=== PATIENT | male | born 1955 | race Caucasian/White ===

== ENCOUNTER → 2018-11-15 | Outpatient (REF) | payer OTHER ==
[2018-11-15 18:37] LABS: BASO # 0.1 10^3/uL (0.0-0.2); BASO % 1.1 % (0.0-1.0); EOS # 0.3 10^3/uL (0.0-0.50); EOS % 3.8 % (0.0-3.0); HEMATOCRIT 38.9 % (42.0-52.0); HEMOGLOBIN 13.1 g/dl (13.5-17.5); LYMPH # 2.6 10^3/uL (1.5-4.5); LYMPH % 29.6 % (24.0-44.0); MEAN CORPUSCULAR HGB CONC 33.7 g/dl (32.0-36.5); MEAN CORPUSCULAR VOLUME 95.1 fl (80.0-96.0); MONO # 0.7 10^3/uL (0.0-0.8); MONO % 7.9 % (0.0-5.0); NEUTROPHILS % 57.3 % (36.0-66.0); PLATELET COUNT, AUTOMATED 230 10^3/uL (150-450); RED BLOOD COUNT 4.09 10^6/uL (4.30-6.10); WHITE BLOOD COUNT 8.8 10^3/uL (4.0-10.0)
[2018-11-15 18:46] LABS: ALBUMIN 4.1 GM/DL (3.2-5.2); ALT/SGPT 21 U/L (12-78); BILIRUBIN,TOTAL 0.4 MG/DL (0.2-1.0); BLOOD UREA NITROGEN 16 MG/DL (7-18); CALCIUM LEVEL 9.2 MG/DL (8.8-10.2); CARBON DIOXIDE LEVEL 26 MEQ/L (21-32); CHLORIDE LEVEL 111 MEQ/L (98-107); CHOLESTEROL LEVEL 186 MG/DL (<200); CHOLESTEROL RISK RATIO 4.428 (<5); CREATININE FOR GFR 1.29 MG/DL (0.70-1.30); GLOMERULAR FILTRATION RATE > 60.0 (>49); GLUCOSE, FASTING 91 MG/DL (70-100); HDL CHOLESTEROL 42 MG/DL (>40); LDL CHOLESTEROL 85 MG/DL (<100); NON-HDL-C 144 MG/DL; POTASSIUM SERUM 4.4 MEQ/L (3.5-5.1); SODIUM LEVEL 142 MEQ/L (136-145); TOTAL PROTEIN 6.7 GM/DL (6.4-8.2); TRIGLYCERIDES LEVEL 295 MG/DL (<150)
[2018-11-15 19:29] LABS: HEMOGLOBIN A1c 5.8 %
== END ==
LOC: M LAB REF 17:52
PROVIDERS: ATTEND Nurse Practitioner Family
DX: Z13.9 Encounter for screening, unspecified (principal); E78.5 Hyperlipidemia, unspecified

== ENCOUNTER → 2019-03-13 | Outpatient (REF) | payer OTHER ==
[2019-03-13 18:45] LABS: BASO # 0.1 10^3/uL (0.0-0.2); BASO % 1.1 % (0.0-1.0); EOS # 0.3 10^3/uL (0.0-0.5); EOS % 2.1 % (0.0-3.0); HEMATOCRIT 43.8 % (42.0-52.0); HEMOGLOBIN 14.4 g/dl (13.5-17.5); LYMPH % 24.7 % (24.0-44.0); MEAN CORPUSCULAR HEMOGLOBIN 31.8 pg (27.0-33.0); MEAN CORPUSCULAR HGB CONC 32.9 g/dl (32.0-36.5); MEAN CORPUSCULAR VOLUME 96.7 fl (80.0-96.0); MONO # 0.9 10^3/uL (0.0-0.8); MONO % 7.1 % (0.0-5.0); NEUTROPHILS # 7.9 10^3/uL (1.5-8.5); NEUTROPHILS % 64.6 % (36.0-66.0); PLATELET COUNT, AUTOMATED 242 10^3/uL (150-450); RED BLOOD COUNT 4.53 10^6/uL (4.30-6.10); WHITE BLOOD COUNT 12.2 10^3/uL (4.0-10.0)
[2019-03-13 18:53] LABS: HEMOGLOBIN A1c 5.7 %
== END ==
LOC: M LAB REF 16:35
PROVIDERS: ATTEND Nurse Practitioner Family
DX: R73.9 Hyperglycemia, unspecified (principal); Z13.9 Encounter for screening, unspecified; D64.9 Anemia, unspecified

== ENCOUNTER → 2019-03-20 | Outpatient (REF) | payer OTHER ==
[2019-03-20 14:03] LABS: APPEARANCE, URINE CLEAR (CLEAR); BACTERIA, URINE AUTO NEGATIVE (NEGATIVE); BILIRUBIN, URINE AUTO NEGATIVE (NEGATIVE); BLOOD, URINE BLOOD NEGATIVE (NEGATIVE); COLOR, URINE STRAW (YELLOW); GLUCOSE, URINE (UA) AUTO NEGATIVE (NEGATIVE); KETONE, URINE AUTO NEGATIVE (NEGATIVE); LEUKOCYTE ESTERASE, URINE AUTO NEGATIVE (NEGATIVE); MUCUS, URINE SMALL (NEGATIVE); NITRITE, URINE AUTO NEGATIVE (NEGATIVE); PROTEIN, URINE AUTO NEGATIVE (NEGATIVE); RBC, URINE AUTO 0 /HPF (0-3); SPECIFIC GRAVITY URINE AUTO 1.004 (1.002-1.035); SQUAMOUS EPITHELIAL CELL UR AU 0 /HPF (0-6); UROBILINOGEN, URINE AUTO 0.2 mg/dL (0.0-2.0); WBC, URINE AUTO 0 /HPF (0-3)
== END ==
LOC: M LAB REF 12:31
PROVIDERS: ATTEND Nurse Practitioner Family
DX: D72.829 Elevated white blood cell count, unspecified (principal)

== ENCOUNTER 2023-03-03 15:53 | Inpatient (IN) | payer OTHER ==
[~2023-03-03] VITALS: Ht 170.2 cm; Wt 66.8 kg
[~2023-03-03 15:53] MED LIST: CYCL-707 PO; GABA-282 PO; HYDR-3716 PO; IBUP200T46 PO; LIDO1PAD
[2023-03-03] MEDS ORDERED: ISOVUE-370 76% 100ML VIAL As Ordered ONE (19:53)
[2023-03-03 20:24] LABS: BASO # 0.1 10^3/uL (0.0-0.2); BASO % 0.5 % (0.0-1.0); EOS # 0.7 10^3/uL (0.0-0.5); EOS % 5.2 % (0.0-3.0); HEMATOCRIT 41.3 % (42.0-52.0); HEMOGLOBIN 13.2 g/dl (13.5-17.5); LYMPH # 2.1 10^3/uL (1.5-5.0); MEAN CORPUSCULAR HEMOGLOBIN 29.9 pg (27.0-33.0); MEAN CORPUSCULAR VOLUME 93.7 fl (80.0-96.0); MONO # 1.3 10^3/uL (0.0-0.8); MONO % 9.8 % (2.0-8.0); NEUTROPHILS # 8.7 10^3/uL (1.5-8.5); PLATELET COUNT, AUTOMATED 356 10^3/uL (150-450); RED BLOOD COUNT 4.41 10^6/uL (4.30-6.10); WHITE BLOOD COUNT 12.9 10^3/uL (4.0-10.0)
[2023-03-03 20:39] LABS: PARTIAL THROMBOPLASTIN TIME 45.6 SECONDS (24.8-34.2)
[2023-03-03 20:42] LABS: RSV AMPLIFICATION NEGATIVE (NEGATIVE)
[2023-03-03 20:45] LABS: CK-MB VALUE MASS < 1.0 NG/ML (<3.6); LIPASE 20 U/L (12-53)
[2023-03-03 20:47] LABS: CPK CREATINE PHOSPHOKINASE 34 U/L (46-171); MB/CK RELATIVE INDEX 2.94 (< OR =4)
[2023-03-03 20:48] LABS: ALKALINE PHOSPHATASE 154 U/L (46-116); ALT/SGPT < 9 U/L (7.0-40); AST/SGOT 15 U/L (<34); BILIRUBIN,DIRECT 0.2 MG/DL (<0.4); BILIRUBIN,TOTAL 0.5 MG/DL (0.3-1.2); TOTAL PROTEIN 7.1 G/DL (5.7-8.2)
[2023-03-03 20:51] LABS: INR 1.18; PROTHROMBIN TIME 14.7 SECONDS (12.5-14.5)
[2023-03-03] MEDS ORDERED: CYCLOBENZAPRINE 10MG TABLET PO ONE (22:55)
[2023-03-03] MEDS ORDERED: GABAPENTIN 300 MG CAP PO ONE (22:55)
[2023-03-03] MEDS ORDERED: HOME MED LIST COMPLETE! XX SCH (23:10)
[2023-03-04] MEDS ORDERED: MOM 30ML SUSPENSION UDC PO PRN (00:35)
[2023-03-04] MEDS ORDERED: NORCO, ANEXSIA 5/325MG TABLET (HYDROcodone/ACETAMINOPHEN) PO PRN (00:35)
[2023-03-04] MEDS ORDERED: MORPHINE 2 MG/ML 1ML VIAL IV PRN (00:35)
[2023-03-04] MEDS ORDERED: ACETAMINOPHEN TAB 650MG DOSE (2X325MG) PO PRN (00:35)
[2023-03-04 01:20] VITALS: BP 129/89; TEMP 98.4; O2SAT 96
[2023-03-04 06:00] VITALS: BP 112/76; TEMP 98.1; O2SAT 97
[2023-03-04 06:30] LABS: HEMATOCRIT 38.6 % (42.0-52.0); HEMOGLOBIN 12.8 g/dl (13.5-17.5); MEAN CORPUSCULAR HEMOGLOBIN 30.1 pg (27.0-33.0); MEAN CORPUSCULAR HGB CONC 33.2 g/dl (32.0-36.5); MEAN CORPUSCULAR VOLUME 90.8 fl (80.0-96.0); PLATELET COUNT, AUTOMATED 317 10^3/uL (150-450); RED BLOOD COUNT 4.25 10^6/uL (4.30-6.10); WHITE BLOOD COUNT 11.1 10^3/uL (4.0-10.0)
[2023-03-04 07:00] LABS: ALBUMIN 2.8 G/DL (3.2-5.2); ALKALINE PHOSPHATASE 139 U/L (46-116); ALT/SGPT < 9 U/L (7.0-40); AST/SGOT 12 U/L (<34); BILIRUBIN,TOTAL 0.5 MG/DL (0.3-1.2); BLOOD UREA NITROGEN 14 MG/DL (9-23); CALCIUM LEVEL 9.8 MG/DL (8.3-10.6); CARBON DIOXIDE LEVEL 27 MMOL/L (20-31); CHLORIDE LEVEL 101 MMOL/L (98-107); CREATININE FOR GFR 0.97 MG/DL (0.70-1.30); GLOMERULAR FILTRATION RATE > 60.0 (>49); GLUCOSE, FASTING 85 MG/DL (74-106); POTASSIUM SERUM 4.4 MMOL/L (3.5-5.1); SODIUM LEVEL 136 MMOL/L (136-145)
[2023-03-04] MEDS ORDERED: PERCOCET 5MG/325MG TAB PO PRN ×2 (07:10)
[2023-03-04] MEDS: ENOXAPARIN 40MG/0.4ML SYRINGE (J1650 PER 10MG) SC SCH (09:45)
[2023-03-04] MEDS: NORCO, ANEXSIA 5/325MG TABLET (HYDROcodone/ACETAMINOPHEN) PO PRN (09:46)
[2023-03-04] MEDS: CYCLOBENZAPRINE 10MG TABLET PO SCH ×3 (09:46→20:01)
[2023-03-04] MEDS: GABAPENTIN 300 MG CAP PO SCH ×3 (09:46→20:01)
[2023-03-04] MEDS: DOCUSATE SODIUM 100MG CAPSULE PO SCH ×2 (09:46→20:01)
[2023-03-04 14:00] VITALS: BP 120/79; TEMP 98.6; O2SAT 97
[2023-03-04] MEDS: ANEXSIA, NORCO 7.5MG/325MG TABLET(HYDROCODONE/APAP) PO PRN ×2 (15:20→20:02)
[2023-03-04 20:00] VITALS: BP 120/79; TEMP 98.1; O2SAT 96
[2023-03-04] MEDS: SENNA 8.6 MG TAB (SENOKOT) PO SCH (20:01)
[2023-03-05 06:00] VITALS: BP 114/77; TEMP 97.9; O2SAT 97
[2023-03-05 07:19] LABS: HEMATOCRIT 37.6 % (42.0-52.0); HEMOGLOBIN 12.5 g/dl (13.5-17.5); MEAN CORPUSCULAR HEMOGLOBIN 30.2 pg (27.0-33.0); MEAN CORPUSCULAR HGB CONC 33.2 g/dl (32.0-36.5); MEAN CORPUSCULAR VOLUME 90.8 fl (80.0-96.0); PLATELET COUNT, AUTOMATED 308 10^3/uL (150-450); RED BLOOD COUNT 4.14 10^6/uL (4.30-6.10); WHITE BLOOD COUNT 10.6 10^3/uL (4.0-10.0)
[2023-03-05 07:52] LABS: ALBUMIN 2.8 G/DL (3.2-5.2); ALKALINE PHOSPHATASE 127 U/L (46-116); ALT/SGPT < 9 U/L (7.0-40); AST/SGOT 12 U/L (<34); BILIRUBIN,TOTAL 0.5 MG/DL (0.3-1.2); BLOOD UREA NITROGEN 17 MG/DL (9-23); CALCIUM LEVEL 9.5 MG/DL (8.3-10.6); CARBON DIOXIDE LEVEL 27 MMOL/L (20-31); CHLORIDE LEVEL 101 MMOL/L (98-107); CREATININE FOR GFR 0.93 MG/DL (0.70-1.30); GLOMERULAR FILTRATION RATE > 60.0 (>49); GLUCOSE, FASTING 94 MG/DL (74-106); POTASSIUM SERUM 4.1 MMOL/L (3.5-5.1); SODIUM LEVEL 136 MMOL/L (136-145); TOTAL PROTEIN 6.9 G/DL (5.7-8.2)
[2023-03-05] MEDS: GABAPENTIN 300 MG CAP PO SCH ×3 (09:24→20:14)
[2023-03-05] MEDS: ENOXAPARIN 40MG/0.4ML SYRINGE (J1650 PER 10MG) SC SCH (09:24)
[2023-03-05] MEDS: CYCLOBENZAPRINE 10MG TABLET PO SCH ×3 (09:24→20:14)
[2023-03-05] MEDS: DOCUSATE SODIUM 100MG CAPSULE PO SCH ×2 (09:24→20:14)
[2023-03-05] MEDS: NORCO, ANEXSIA 5/325MG TABLET (HYDROcodone/ACETAMINOPHEN) PO PRN ×3 (09:25→20:13)
[2023-03-05 14:00] VITALS: BP 113/79; TEMP 98.6; O2SAT 95
[2023-03-05] MEDS ORDERED: PROHANCE 279.3MG/ML 15ML VIAL As Ordered ONE (15:30)
[2023-03-05 20:00] VITALS: BP 115/79; TEMP 98.4; O2SAT 97
[2023-03-05] MEDS: SENNA 8.6 MG TAB (SENOKOT) PO SCH (20:13)
[2023-03-06] MEDS: ANEXSIA, NORCO 7.5MG/325MG TABLET(HYDROCODONE/APAP) PO PRN ×2 (02:23→08:30)
[2023-03-06 05:45] VITALS: BP 119/82; TEMP 98.1; O2SAT 97
[2023-03-06 06:27] LABS: HEMATOCRIT 37.6 % (42.0-52.0); HEMOGLOBIN 12.3 g/dl (13.5-17.5); MEAN CORPUSCULAR HEMOGLOBIN 29.9 pg (27.0-33.0); MEAN CORPUSCULAR HGB CONC 32.7 g/dl (32.0-36.5); MEAN CORPUSCULAR VOLUME 91.3 fl (80.0-96.0); PLATELET COUNT, AUTOMATED 317 10^3/uL (150-450); RED BLOOD COUNT 4.12 10^6/uL (4.30-6.10); WHITE BLOOD COUNT 9.7 10^3/uL (4.0-10.0)
[2023-03-06 06:55] LABS: ALBUMIN 2.7 G/DL (3.2-5.2); ALKALINE PHOSPHATASE 117 U/L (46-116); ALT/SGPT 9 U/L (7.0-40); AST/SGOT 12 U/L (<34); BILIRUBIN,TOTAL 0.5 MG/DL (0.3-1.2); BLOOD UREA NITROGEN 14 MG/DL (9-23); CALCIUM LEVEL 9.4 MG/DL (8.3-10.6); CARBON DIOXIDE LEVEL 27 MMOL/L (20-31); CHLORIDE LEVEL 102 MMOL/L (98-107); CREATININE FOR GFR 0.96 MG/DL (0.70-1.30); GLOMERULAR FILTRATION RATE > 60.0 (>49); GLUCOSE, FASTING 101 MG/DL (74-106); POTASSIUM SERUM 3.8 MMOL/L (3.5-5.1); SODIUM LEVEL 138 MMOL/L (136-145); TOTAL PROTEIN 6.8 G/DL (5.7-8.2)
[2023-03-06] MEDS: GABAPENTIN 300 MG CAP PO SCH ×3 (08:29→20:17)
[2023-03-06] MEDS: DOCUSATE SODIUM 100MG CAPSULE PO SCH ×2 (08:29→20:26)
[2023-03-06] MEDS: CYCLOBENZAPRINE 10MG TABLET PO SCH ×3 (08:30→20:17)
[2023-03-06] MEDS: ENOXAPARIN 40MG/0.4ML SYRINGE (J1650 PER 10MG) SC SCH ×2 (08:30→08:49)
[2023-03-06] MEDS: MOM 30ML SUSPENSION UDC PO SCH ×3 (09:00→20:17)
[2023-03-06] MEDS: NORCO, ANEXSIA 5/325MG TABLET (HYDROcodone/ACETAMINOPHEN) PO PRN ×2 (13:26→20:18)
[2023-03-06 14:00] VITALS: BP 116/79; TEMP 98.1; O2SAT 96
[2023-03-06] MEDS: SENNA 8.6 MG TAB (SENOKOT) PO SCH (20:17)
[2023-03-06 20:50] VITALS: BP 117/79; TEMP 98.1; O2SAT 98
[2023-03-07 05:30] VITALS: BP 124/79; TEMP 97.9; O2SAT 98
[2023-03-07 06:23] LABS: HEMATOCRIT 37.5 % (42.0-52.0); HEMOGLOBIN 12.3 g/dl (13.5-17.5); MEAN CORPUSCULAR HEMOGLOBIN 29.6 pg (27.0-33.0); MEAN CORPUSCULAR HGB CONC 32.8 g/dl (32.0-36.5); MEAN CORPUSCULAR VOLUME 90.4 fl (80.0-96.0); PLATELET COUNT, AUTOMATED 335 10^3/uL (150-450); RED BLOOD COUNT 4.15 10^6/uL (4.30-6.10); WHITE BLOOD COUNT 11.1 10^3/uL (4.0-10.0)
[2023-03-07] MEDS: NORCO, ANEXSIA 5/325MG TABLET (HYDROcodone/ACETAMINOPHEN) PO PRN ×4 (06:44→20:08)
[2023-03-07 06:52] LABS: ALBUMIN 2.7 G/DL (3.2-5.2); ALKALINE PHOSPHATASE 116 U/L (46-116); ALT/SGPT 12 U/L (7.0-40); AST/SGOT 17 U/L (<34); BILIRUBIN,TOTAL 0.5 MG/DL (0.3-1.2); BLOOD UREA NITROGEN 14 MG/DL (9-23); CALCIUM LEVEL 9.3 MG/DL (8.3-10.6); CARBON DIOXIDE LEVEL 25 MMOL/L (20-31); CHLORIDE LEVEL 101 MMOL/L (98-107); CREATININE FOR GFR 0.83 MG/DL (0.70-1.30); GLOMERULAR FILTRATION RATE > 60.0 (>49); GLUCOSE, FASTING 113 MG/DL (74-106); SODIUM LEVEL 137 MMOL/L (136-145); TOTAL PROTEIN 6.8 G/DL (5.7-8.2)
[2023-03-07] MEDS: MOM 30ML SUSPENSION UDC PO SCH ×2 (08:06→20:12)
[2023-03-07] MEDS: DOCUSATE SODIUM 100MG CAPSULE PO SCH ×2 (08:06→20:12)
[2023-03-07] MEDS: GABAPENTIN 300 MG CAP PO SCH ×3 (08:06→20:07)
[2023-03-07] MEDS: CYCLOBENZAPRINE 10MG TABLET PO SCH ×3 (08:06→20:07)
[2023-03-07 08:11] LABS: CA 27.29 138.3 U/mL (0.0-38.6)
[2023-03-07] MEDS: ENOXAPARIN 40MG/0.4ML SYRINGE (J1650 PER 10MG) SC SCH (08:16)
[2023-03-07] MEDS ORDERED: LIDOCAINE 1% MDV 20ML VIAL As Ordered ONE (13:10)
[2023-03-07 15:00] VITALS: BP 125/79; TEMP 97.9; O2SAT 100
[2023-03-07] MEDS: SENNA 8.6 MG TAB (SENOKOT) PO SCH (20:12)
[2023-03-07 21:04] VITALS: BP 114/77; TEMP 98.1; O2SAT 96
[2023-03-08 05:17] VITALS: BP 108/71; TEMP 98.1; O2SAT 97
[2023-03-08] MEDS: NORCO, ANEXSIA 5/325MG TABLET (HYDROcodone/ACETAMINOPHEN) PO PRN ×2 (05:18→13:08)
[2023-03-08 06:27] LABS: HEMATOCRIT 35.6 % (42.0-52.0); HEMOGLOBIN 11.5 g/dl (13.5-17.5); MEAN CORPUSCULAR HEMOGLOBIN 29.4 pg (27.0-33.0); MEAN CORPUSCULAR HGB CONC 32.3 g/dl (32.0-36.5); PLATELET COUNT, AUTOMATED 322 10^3/uL (150-450); RED BLOOD COUNT 3.91 10^6/uL (4.30-6.10)
[2023-03-08 06:59] LABS: ALBUMIN 2.7 G/DL (3.2-5.2); ALKALINE PHOSPHATASE 116 U/L (46-116); ALT/SGPT 15 U/L (7.0-40); AST/SGOT 19 U/L (<34); BILIRUBIN,TOTAL 0.4 MG/DL (0.3-1.2); BLOOD UREA NITROGEN 13 MG/DL (9-23); CALCIUM LEVEL 9.1 MG/DL (8.3-10.6); CARBON DIOXIDE LEVEL 27 MMOL/L (20-31); CHLORIDE LEVEL 102 MMOL/L (98-107); CREATININE FOR GFR 0.83 MG/DL (0.70-1.30); GLOMERULAR FILTRATION RATE > 60.0 (>49); GLUCOSE, FASTING 99 MG/DL (74-106); SODIUM LEVEL 139 MMOL/L (136-145); TOTAL PROTEIN 6.4 G/DL (5.7-8.2)
[2023-03-08] MEDS: MOM 30ML SUSPENSION UDC PO SCH (09:00)
[2023-03-08] MEDS: DOCUSATE SODIUM 100MG CAPSULE PO SCH (09:00)
[2023-03-08] MEDS: GABAPENTIN 300 MG CAP PO SCH (09:20)
[2023-03-08] MEDS: CYCLOBENZAPRINE 10MG TABLET PO SCH (09:20)
[2023-03-08] MEDS: ENOXAPARIN 40MG/0.4ML SYRINGE (J1650 PER 10MG) SC SCH (09:20)
[2023-03-08] MEDS ORDERED: HYDR-3716 PO (12:43)
[2023-03-08] MEDS ORDERED: COLA100C5 PO (12:44)
[2023-03-08] MEDS ORDERED: SENN-188 PO (12:44)
[2023-03-08] MEDS ORDERED: HYDR-3715 PO (12:44)
[2023-03-13] MEDS ORDERED: HYDR-3715 PO (14:10)
== END 2023-03-08 14:42 | disposition home or self-care (01) | DRG 136 ==
LOC: M ED 15:53 → M ED INP 23:34 → ENRESERV 03-04 01:01 → M MSPAV 03-04 01:21
PROVIDERS: ADMIT Family Medicine; ATTEND Internal Medicine Nephrology
PROC: 0QB13ZX Excision of Sacrum, Percutaneous Approach, Diagnostic (ICD-10-PCS; principal; 2023-03-07 15:00)
DX: C34.90 Malignant neoplasm of unspecified part of unspecified bronchus or lung (principal); C79.51 Secondary malignant neoplasm of bone; Z87.891 Personal history of nicotine dependence; Z79.899 Other long term (current) drug therapy; Z92.3 Personal history of irradiation

== ENCOUNTER → 2023-04-05 | Outpatient (CLI) | payer OTHER ==
[~2023-04-05] VITALS: Ht 170.2 cm; Wt 60.4 kg
[~2023-04-05] MED LIST changes: +COLA100C5 PO; +HYDR-3715 PO; +LIDOCAINE 1% MDV 20ML VIAL As Ordered ONE; +LIDOCAINE W/EPINEPHRINE 1% 20ML VIAL As Ordered ONE; +MIDAZOLAM INJ 2MG/2ML VIAL As Ordered ONE; +OXYC7.5T3 PO; +SENN-188 PO; +ceFAZolin 2 GM/D5W 50 ML IV BAG As Ordered ONE; +ceFAZolin SOD 2 GM in IV 1 EA IV ONE; +fentaNYL 100 MCG/2 ML INJECTION As Ordered ONE
[2023-04-05 12:05] VITALS: TEMP 97.7
[2023-04-05 14:30] VITALS: BP 113/74; O2SAT 97
== END ==
LOC: M IRPRO 11:50
PROVIDERS: ATTEND Internal Medicine Medical Oncology
DX: C79.51 Secondary malignant neoplasm of bone (principal); R91.8 Other nonspecific abnormal finding of lung field
CPT/HCPCS: 36561; 99152; 99153; J0690; J2250; J3010

== ENCOUNTER 2023-05-17 06:34 | Emergency (ER) | payer OTHER ==
[~2023-05-17] VITALS: Ht 170.2 cm; Wt 59.3 kg
[~2023-05-17 06:34] MED LIST changes: +DEXA4TA PO; +FOLI1TAB11 PO; +LIDO30CR18 TOP; -LIDOCAINE 1% MDV 20ML VIAL As Ordered ONE; -LIDOCAINE W/EPINEPHRINE 1% 20ML VIAL As Ordered ONE; -MIDAZOLAM INJ 2MG/2ML VIAL As Ordered ONE; +ONDA-84 PO; +PROC10TA5 PO; -ceFAZolin 2 GM/D5W 50 ML IV BAG As Ordered ONE; -ceFAZolin SOD 2 GM in IV 1 EA IV ONE; -fentaNYL 100 MCG/2 ML INJECTION As Ordered ONE
[2023-05-17] MEDS ORDERED: NS 1,000 ML IV ONE ×2 (06:40→06:50)
[2023-05-17] MEDS ORDERED: DIGOXIN INJ 0.5 MG/2 ML AMP IV STA (06:47)
[2023-05-17 07:10] LABS: BASO # 0.1 10^3/uL (0.0-0.2); BASO % 1.2 % (0.0-1.0); EOS # 0.2 10^3/uL (0.0-0.5); EOS % 4.2 % (0.0-3.0); HEMATOCRIT 36.1 % (42.0-52.0); HEMOGLOBIN 11.3 g/dl (13.5-17.5); LYMPH # 1.2 10^3/uL (1.5-5.0); MEAN CORPUSCULAR HGB CONC 31.3 g/dl (32.0-36.5); MEAN CORPUSCULAR VOLUME 92.6 fl (80.0-96.0); MONO # 0.3 10^3/uL (0.0-0.8); MONO % 7.7 % (2.0-8.0); NEUTROPHILS # 2.5 10^3/uL (1.5-8.5); NEUTROPHILS % 57.5 % (36.0-66.0); PLATELET COUNT, AUTOMATED 212 10^3/uL (150-450); WHITE BLOOD COUNT 4.3 10^3/uL (4.0-10.0)
[2023-05-17 07:22] LABS: INR 1.15; PARTIAL THROMBOPLASTIN TIME 37.6 SECONDS (24.8-34.2); PROTHROMBIN TIME 14.4 SECONDS (12.5-14.5)
[2023-05-17] MEDS ORDERED: METOPROLOL TART 25 MG TABLET PO ONE (07:40)
[2023-05-17] MEDS ORDERED: DIGOXIN INJ 0.5 MG/2 ML AMP IV ONE (07:40)
[2023-05-17 07:43] LABS: RSV AMPLIFICATION NEGATIVE (NEGATIVE)
[2023-05-17 07:45] LABS: BLOOD UREA NITROGEN 11 MG/DL (9-23); CALCIUM LEVEL 8.5 MG/DL (8.3-10.6); CARBON DIOXIDE LEVEL 22 MMOL/L (20-31); CHLORIDE LEVEL 101 MMOL/L (98-107); CK-MB VALUE MASS < 1.0 NG/ML (<3.6); CREATININE FOR GFR 0.71 MG/DL (0.70-1.30); GLOMERULAR FILTRATION RATE > 60.0 (>49); GLUCOSE, FASTING 118 MG/DL (74-106); POTASSIUM SERUM 4.3 MMOL/L (3.5-5.1); SODIUM LEVEL 133 MMOL/L (136-145)
[2023-05-17] MEDS ORDERED: DERMABOND TOPICAL SKIN ADHESIVE TOP ONE (07:45)
[2023-05-17 07:47] LABS: THYROID STIMULATING HORMONE 6.012 uIU/ML (0.55-4.78)
[2023-05-17 07:48] LABS: FREE T4 1.17 NG/DL (0.89-1.76)
[2023-05-17 08:04] LABS: CPK CREATINE PHOSPHOKINASE 23 U/L (46-171); MB/CK RELATIVE INDEX 4.34 (< OR =4)
[2023-05-17 08:15] VITALS: BP 98/60
[2023-05-17 08:32] LABS: CK-MB VALUE MASS < 1.0 NG/ML (<3.6)
[2023-05-17 08:50] LABS: CPK CREATINE PHOSPHOKINASE 30 U/L (46-171); MB/CK RELATIVE INDEX 3.33 (< OR =4)
[2023-05-17] MEDS ORDERED: NS 1,000 ML IV SCH (08:55)
[2023-05-17] MEDS ORDERED: MED REC IN PROGRESS XX SCH (09:20)
[2023-05-17] MEDS ORDERED: ASPIRIN 325 MG TAB PO ONE (09:30)
[2023-05-17] MEDS ORDERED: FLECAINIDE 50MG TABLET PO ONE (09:45)
[2023-05-17 10:50] VITALS: BP 127/59; TEMP 98.1; O2SAT 96
[2023-05-22] MEDS ORDERED: GABA-282 PO (09:07)
[2023-05-25] MEDS ORDERED: ATIV1TAB10 PO (08:40)
== END 2023-05-17 10:59 | disposition short-term general hospital (02) ==
LOC: EDBD 06:34 → M ED 06:34
DX: R55 Syncope and collapse (principal); I48.91 Unspecified atrial fibrillation; S01.112A Laceration without foreign body of left eyelid and periocular area, initial encounter; W19.XXXA Unspecified fall, initial encounter; Y92.89 Other specified places as the place of occurrence of the external cause; Y93.89 Activity, other specified; Y99.8 Other external cause status; C34.90 Malignant neoplasm of unspecified part of unspecified bronchus or lung; Z79.899 Other long term (current) drug therapy
CPT/HCPCS: 12011; 70450; 70486; 71045; 72125; 80047; 80048; 82550; 82553; 83605; 83880; 84439; 84443; 84484; 85025; 85610; 85730; 87631; 93005; 93041; 94760; 96374; 96376; 99285; J1160

== ENCOUNTER → 2023-06-30 | Outpatient (CLI) | payer OTHER ==
[~2023-06-30] VITALS: Ht 170.2 cm; Wt 58.2 kg
[~2023-06-30] MED LIST changes: +ACETAMINOPHEN TAB 650MG DOSE (2X325MG) PO SCH; +AMBI5TAB PO; +ATIV1TAB10 PO; +CYCL-707; +ELIQ5TAB; +LORA1TAB23 PO; +METO50TA7; +OXYC10TA12 PO; +SENN-186; +SODIUM CHLORIDE 0.9% INJ 10 ML SYR IV PRN; +SODIUM CHLORIDE 0.9% INJ 10 ML SYR IV SCH; +SYNT25TA PO; +diphenhydrAMINE 25MG CAP PO SCH
[2023-06-30 11:20] VITALS: BP 95/61; O2SAT 97
[2023-06-30 12:19] VITALS: BP 104/68; TEMP 97.5; O2SAT 100
[2023-06-30 13:40] VITALS: BP 105/67; TEMP 97.6; O2SAT 96
[2023-06-30 14:15] VITALS: BP 110/68; O2SAT 96
== END ==
LOC: M INFU 10:35
PROVIDERS: ATTEND Nurse Practitioner
DX: C34.90 Malignant neoplasm of unspecified part of unspecified bronchus or lung (principal)
CPT/HCPCS: 36430; 96523; P9016

== ENCOUNTER 2023-07-13 08:28 | Outpatient (CLI) | payer OTHER ==
[~2023-07-13] VITALS: Ht 170.2 cm; Wt 59.0 kg
[~2023-07-13 08:28] MED LIST changes: -ACETAMINOPHEN TAB 650MG DOSE (2X325MG) PO SCH; +ELIQ5TAB PO; -SODIUM CHLORIDE 0.9% INJ 10 ML SYR IV PRN; -SODIUM CHLORIDE 0.9% INJ 10 ML SYR IV SCH; +ZOLP10TA2 PO; -diphenhydrAMINE 25MG CAP PO SCH
[2023-07-13] MEDS ORDERED: diphenhydrAMINE 25MG CAP PO ONE (09:00)
[2023-07-13] MEDS ORDERED: ACETAMINOPHEN TAB 650MG DOSE (2X325MG) PO ONE (09:00)
[2023-07-13 09:41] VITALS: BP 96/62; TEMP 97.5; O2SAT 100
[2023-07-13 09:55] VITALS: BP 94/58; TEMP 97.6; O2SAT 96
[2023-07-13 10:55] VITALS: BP 101/66; TEMP 97.6; O2SAT 98
[2023-07-13 11:20] VITALS: BP 96/62; TEMP 97.7; O2SAT 99
[2023-07-13 11:40] VITALS: BP 98/68; TEMP 97.6; O2SAT 96
[2023-07-13 12:50] VITALS: BP 113/71; TEMP 96.6; O2SAT 97
== END 2023-07-13 13:00 ==
LOC: M INFU 08:28
PROVIDERS: ATTEND Internal Medicine Medical Oncology
DX: C34.90 Malignant neoplasm of unspecified part of unspecified bronchus or lung (principal); D64.9 Anemia, unspecified
CPT/HCPCS: 36430; P9016

== ENCOUNTER → 2023-07-21 | Outpatient (CLI) | payer OTHER ==
[~2023-07-21] MED LIST changes: +B-12100010 PO; +GASTROGRAFIN SOLUTION 30ML ONE; +ISOVUE-370 76% 100ML VIAL ONE; +MELA10CA PO; +METO1TAB87 PO; +THERTAB19 PO
== END ==
LOC: M PLAIMG 09:28
PROVIDERS: ATTEND Nurse Practitioner
DX: C34.12 Malignant neoplasm of upper lobe, left bronchus or lung (principal); C79.72 Secondary malignant neoplasm of left adrenal gland; C79.71 Secondary malignant neoplasm of right adrenal gland; C77.1 Secondary and unspecified malignant neoplasm of intrathoracic lymph nodes; C79.51 Secondary malignant neoplasm of bone; J90 Pleural effusion, not elsewhere classified

== ENCOUNTER 2023-07-22 21:12 | Inpatient (IN) | payer OTHER ==
[~2023-07-22] VITALS: Ht 170.2 cm; Wt 61.0 kg
[~2023-07-22 21:12] MED LIST changes: -B-12100010 PO; -GASTROGRAFIN SOLUTION 30ML ONE; -ISOVUE-370 76% 100ML VIAL ONE; -MELA10CA PO; -METO1TAB87 PO; -THERTAB19 PO
[2023-07-22 22:12] LABS: BASO % 0.2 % (0.0-1.0); EOS % 0.2 % (0.0-3.0); HEMATOCRIT 23.8 % (42.0-52.0); HEMOGLOBIN 7.6 g/dl (13.5-17.5); LYMPH # 0.6 10^3/uL (1.5-5.0); LYMPH % 12.8 % (24.0-44.0); MEAN CORPUSCULAR HEMOGLOBIN 31.4 pg (27.0-33.0); MEAN CORPUSCULAR HGB CONC 31.9 g/dl (32.0-36.5); MEAN CORPUSCULAR VOLUME 98.3 fl (80.0-96.0); MONO # 0.5 10^3/uL (0.0-0.8); MONO % 9.7 % (2.0-8.0); NEUTROPHILS # 3.7 10^3/uL (1.5-8.5); NEUTROPHILS % 76.5 % (36.0-66.0); PLATELET COUNT, AUTOMATED 105 10^3/uL (150-450); RED BLOOD COUNT 2.42 10^6/uL (4.30-6.10); WHITE BLOOD COUNT 4.8 10^3/uL (4.0-10.0)
[2023-07-22 22:44] LABS: ALKALINE PHOSPHATASE 114 U/L (46-116); ALT/SGPT 30 U/L (7.0-40); AST/SGOT 47 U/L (<34); BILIRUBIN,TOTAL 0.4 MG/DL (0.3-1.2); BLOOD UREA NITROGEN 15 MG/DL (9-23); CALCIUM LEVEL 8.2 MG/DL (8.3-10.6); CARBON DIOXIDE LEVEL 24 MMOL/L (20-31); CHLORIDE LEVEL 105 MMOL/L (98-107); CREATININE FOR GFR 0.68 MG/DL (0.70-1.30); GLOMERULAR FILTRATION RATE > 60.0 (>49); GLUCOSE, FASTING 98 MG/DL (74-106); POTASSIUM SERUM 4.5 MMOL/L (3.5-5.1); SODIUM LEVEL 137 MMOL/L (136-145); TOTAL PROTEIN 6.2 G/DL (5.7-8.2)
[2023-07-22] MEDS ORDERED: ISOVUE-370 76% 100ML VIAL As Ordered ONE (23:05)
[2023-07-23] VITALS (10 sets, daily range): BP systolic 82–120; BP diastolic 48–72; TEMP 97.4–98.5; O2SAT 94–99
[2023-07-23] MEDS ORDERED: BENZONATATE 100MG CAPSULE PO ONE
[2023-07-23] MEDS ORDERED: NS 1,000 ML IV ONE ×3 (00:30→06:30)
[2023-07-23] MEDS ORDERED: PIPERACILLIN/TAZOBACTAM SOD 4.5 GM in D5W MINI-BAG PLUS 50 ML IV ONE (00:40)
[2023-07-23] MEDS ORDERED: NS 1,000 ML in IV 1 EA IV ONE (00:40)
[2023-07-23] MEDS ORDERED: THERTAB19 PO (01:16)
[2023-07-23] MEDS ORDERED: MELA10CA PO (01:16)
[2023-07-23] MEDS ORDERED: B-12100010 PO (01:16)
[2023-07-23] MEDS ORDERED: METO1TAB87 PO (01:16)
[2023-07-23] MEDS ORDERED: HOME MED LIST COMPLETE! XX SCH (01:20)
[2023-07-23] MEDS ORDERED: ALBUTEROL SULFATE 2.5MG/0.5ML INH NEB SOLN NEB PRN (02:00)
[2023-07-23] MEDS ORDERED: zolPIDEM TARTRATE 5 MG TAB PO PRN (02:35)
[2023-07-23] MEDS ORDERED: guaiFENesin/CODEINE SYRUP 5 ML UDC PO SCH (03:00)
[2023-07-23] MEDS ORDERED: HYDROCORTISONE 100MG/2ML VIAL IV ONE (03:00)
[2023-07-23] MEDS ORDERED: VANCOMYCIN HCL 1,000 MG, VIAL MATE ADAPTER 1 EACH in D5W 250 ML IV SCH (03:00)
[2023-07-23] MEDS: IPRATROPIUM 0.5MG/ALBUTEROL 2.5MG INH SOL UD 3ML (DUONEB) NEB SCH ×4 (03:30→20:12)
[2023-07-23 04:25] LABS: PROCALCITONIN 0.22 ng/ml
[2023-07-23] MEDS: LEVOTHYROXINE 25MCG TABLET (0.025MG) PO SCH (06:38)
[2023-07-23] MEDS: METOPROLOL TART 12.5 MG PER 1/2 TAB PO SCH ×2 (09:00→20:57)
[2023-07-23] MEDS ORDERED: METOPROLOL TART 25 MG TABLET PO SCH (09:00)
[2023-07-23] MEDS: PIPERACILLIN/TAZOBACTAM SOD 4.5 GM in D5W MINI-BAG PLUS 50 ML IV SCH ×3 (09:00→17:58)
[2023-07-23] MEDS: MIDODRINE 5 MG TAB PO SCH ×3 (09:01→15:51)
[2023-07-23] MEDS: FOLIC ACID 1MG TAB PO SCH (09:01)
[2023-07-23] MEDS ORDERED: RAMELTEON 8 MG TAB (ROZEREM) PO PRN (09:05)
[2023-07-23 09:55] LABS: BASO % 0.2 % (0.0-1.0); HEMATOCRIT 24.2 % (42.0-52.0); HEMOGLOBIN 7.9 g/dl (13.5-17.5); LYMPH # 0.3 10^3/uL (1.5-5.0); LYMPH % 4.8 % (24.0-44.0); MEAN CORPUSCULAR HEMOGLOBIN 31.3 pg (27.0-33.0); MEAN CORPUSCULAR HGB CONC 32.6 g/dl (32.0-36.5); MONO # 0.3 10^3/uL (0.0-0.8); MONO % 4.8 % (2.0-8.0); NEUTROPHILS # 4.6 10^3/uL (1.5-8.5); NEUTROPHILS % 89.4 % (36.0-66.0); RED BLOOD COUNT 2.52 10^6/uL (4.30-6.10); WHITE BLOOD COUNT 5.2 10^3/uL (4.0-10.0)
[2023-07-23 10:04] LABS: INR 1.53; PROTHROMBIN TIME 17.9 SECONDS (12.5-14.5)
[2023-07-23 10:15] LABS: PLATELET COUNT, AUTOMATED 84 10^3/uL (150-450)
[2023-07-23] MEDS: CYANOCOBALAMIN 500 MCG TAB PO SCH (10:23)
[2023-07-23 10:25] LABS: ALBUMIN 1.7 G/DL (3.2-5.2); ALKALINE PHOSPHATASE 97 U/L (46-116); ALT/SGPT 22 U/L (7.0-40); AST/SGOT 32 U/L (<34); BILIRUBIN,TOTAL 0.6 MG/DL (0.3-1.2); BLOOD UREA NITROGEN 12 MG/DL (9-23); CALCIUM LEVEL 7.3 MG/DL (8.3-10.6); CARBON DIOXIDE LEVEL 20 MMOL/L (20-31); CHLORIDE LEVEL 111 MMOL/L (98-107); CREATININE FOR GFR 0.56 MG/DL (0.70-1.30); GLOMERULAR FILTRATION RATE > 60.0 (>49); GLUCOSE, FASTING 167 MG/DL (74-106); POTASSIUM SERUM 3.3 MMOL/L (3.5-5.1); SODIUM LEVEL 141 MMOL/L (136-145); TOTAL PROTEIN 5.3 G/DL (5.7-8.2)
[2023-07-23] MEDS ORDERED: LR 1,000 ML IV ONE (15:20)
[2023-07-23] MEDS: GABAPENTIN 300 MG CAP PO SCH ×2 (15:51→20:57)
[2023-07-23] MEDS: LORazepam 1 MG TAB PO SCH ×2 (15:51→20:56)
[2023-07-23] MEDS: HYDROCORTISONE 10 MG TAB PO SCH (17:58)
[2023-07-23] MEDS: METOPROLOL 5 MG/5 ML VIAL IV SCH ×3 (22:46→23:32)
[2023-07-23] MEDS ORDERED: DIGOXIN INJ 0.5 MG/2 ML AMP IV STA (23:29)
[2023-07-24] VITALS (11 sets, daily range): BP systolic 76–120; BP diastolic 50–71; TEMP 97.4–98.2; O2SAT 94–95
[2023-07-24] MEDS: PIPERACILLIN/TAZOBACTAM SOD 4.5 GM in D5W MINI-BAG PLUS 50 ML IV SCH ×5 (00:20→22:27)
[2023-07-24] MEDS: IPRATROPIUM 0.5MG/ALBUTEROL 2.5MG INH SOL UD 3ML (DUONEB) NEB SCH ×5 (01:23→21:21)
[2023-07-24] MEDS ORDERED: METOPROLOL TART 25 MG TABLET PO ONE (02:00)
[2023-07-24] MEDS: HYDROCORTISONE 10 MG TAB PO SCH (05:35)
[2023-07-24] MEDS: LEVOTHYROXINE 25MCG TABLET (0.025MG) PO SCH (05:35)
[2023-07-24 07:35] LABS: MEAN CORPUSCULAR HEMOGLOBIN 31.6 pg (27.0-33.0); MEAN CORPUSCULAR VOLUME 95.6 fl (80.0-96.0); RED BLOOD COUNT 2.06 10^6/uL (4.30-6.10); WHITE BLOOD COUNT 3.9 10^3/uL (4.0-10.0)
[2023-07-24 07:42] LABS: HEMATOCRIT 19.7 % (42.0-52.0); HEMOGLOBIN 6.5 g/dl (13.5-17.5); PLATELET COUNT, AUTOMATED 62 10^3/uL (150-450)
[2023-07-24 08:03] LABS: BLOOD UREA NITROGEN 9 MG/DL (9-23); CALCIUM LEVEL 7.5 MG/DL (8.3-10.6); CARBON DIOXIDE LEVEL 24 MMOL/L (20-31); CHLORIDE LEVEL 111 MMOL/L (98-107); CREATININE FOR GFR 0.62 MG/DL (0.70-1.30); GLOMERULAR FILTRATION RATE > 60.0 (>49); GLUCOSE, FASTING 92 MG/DL (74-106); POTASSIUM SERUM 3.3 MMOL/L (3.5-5.1); SODIUM LEVEL 141 MMOL/L (136-145)
[2023-07-24] MEDS: CYANOCOBALAMIN 500 MCG TAB PO SCH (08:19)
[2023-07-24] MEDS: GABAPENTIN 300 MG CAP PO SCH ×3 (08:19→20:41)
[2023-07-24] MEDS: LORazepam 1 MG TAB PO SCH ×3 (08:22→20:42)
[2023-07-24] MEDS: FOLIC ACID 1MG TAB PO SCH (08:22)
[2023-07-24] MEDS: METOPROLOL TART 12.5 MG PER 1/2 TAB PO SCH ×2 (08:22→20:42)
[2023-07-24] MEDS: MIDODRINE 5 MG TAB PO SCH ×3 (08:22→17:30)
[2023-07-24] MEDS ORDERED: AMIODARONE HCL 150 MG in IV 1 EA IV ONE (08:30)
[2023-07-24 08:40] LABS: PLATELET COUNT, AUTOMATED 65 10^3/uL (150-450)
[2023-07-24] MEDS ORDERED: AMIODARONE HCL 360 MG in IV 1 EA IV SCH (08:40)
[2023-07-24] MEDS ORDERED: ISOVUE-370 76% 100ML VIAL As Ordered ONE (08:47)
[2023-07-24] MEDS: KCL 10MEQ/100ML SWI (KRUN) 10 MEQ in IV 1 EA IV SCH ×4 (09:00→22:11)
[2023-07-24 09:19] LABS: INR 1.27; PROTHROMBIN TIME 15.5 SECONDS (12.5-14.5)
[2023-07-24 09:20] LABS: PARTIAL THROMBOPLASTIN TIME 43.1 SECONDS (24.8-34.2)
[2023-07-24 09:23] LABS: D-DIMER QUANT 1.94 ug/mL (<0.5)
[2023-07-24 10:08] LABS: ALBUMIN 1.4 G/DL (3.2-5.2); ALKALINE PHOSPHATASE 76 U/L (46-116); ALT/SGPT 17 U/L (7.0-40); AST/SGOT 30 U/L (<34); BILIRUBIN,DIRECT 0.1 MG/DL (<0.4); BILIRUBIN,TOTAL 0.4 MG/DL (0.3-1.2); TOTAL PROTEIN 4.6 G/DL (5.7-8.2)
[2023-07-24] MEDS: MAG SULF 1GM/100ML (MAG RUN) 1 GM in IV 1 EA IV SCH ×2 (11:00→12:00)
[2023-07-24] MEDS ORDERED: HYDROCORTISONE 100MG/2ML VIAL IV SCH (11:00)
[2023-07-24] MEDS ORDERED: MIDAZOLAM INJ 2MG/2ML VIAL IV SCH (12:55)
[2023-07-24] MEDS ORDERED: MOM 30ML SUSPENSION UDC PO ONE (16:00)
[2023-07-24] MEDS: HYDROCORTISONE 100MG/2ML VIAL IV SCH ×2 (17:30→23:24)
[2023-07-24] MEDS ORDERED: POLYETHYLENE GLYCOL (MIRALAX) 238GM BOTTLE PO ONE (18:00)
[2023-07-24] MEDS ORDERED: MAG SULF 1GM/100ML (MAG RUN) 1 GM in IV 1 EA IV SCH (18:00)
[2023-07-24] MEDS: AMIODARONE HCL 360 MG in IV 1 EA IV SCH (18:34)
[2023-07-24 19:07] LABS: MEAN CORPUSCULAR HEMOGLOBIN 31.2 pg (27.0-33.0); MEAN CORPUSCULAR HGB CONC 34.1 g/dl (32.0-36.5); MEAN CORPUSCULAR VOLUME 91.5 fl (80.0-96.0); RED BLOOD COUNT 2.95 10^6/uL (4.30-6.10); WHITE BLOOD COUNT 4.8 10^3/uL (4.0-10.0)
[2023-07-24 19:08] LABS: HEMOGLOBIN 9.2 g/dl (13.5-17.5); PLATELET COUNT, AUTOMATED 59 10^3/uL (150-450)
[2023-07-24 22:37] LABS: HEMATOCRIT 26.1 % (42.0-52.0); HEMOGLOBIN 8.7 g/dl (13.5-17.5)
[2023-07-25] MEDS: PIPERACILLIN/TAZOBACTAM SOD 4.5 GM in D5W MINI-BAG PLUS 50 ML IV SCH ×4 (02:30→21:30)
[2023-07-25] MEDS: AMIODARONE HCL 360 MG in IV 1 EA IV SCH (02:30)
[2023-07-25 04:36] VITALS: BP 112/68; TEMP 97.2; O2SAT 97
[2023-07-25 05:51] LABS: BASO % 0.3 % (0.0-1.0); HEMATOCRIT 25.2 % (42.0-52.0); HEMOGLOBIN 8.5 g/dl (13.5-17.5); LYMPH # 0.4 10^3/uL (1.5-5.0); LYMPH % 9.8 % (24.0-44.0); MEAN CORPUSCULAR HEMOGLOBIN 30.9 pg (27.0-33.0); MEAN CORPUSCULAR HGB CONC 33.7 g/dl (32.0-36.5); MEAN CORPUSCULAR VOLUME 91.6 fl (80.0-96.0); MONO # 0.3 10^3/uL (0.0-0.8); MONO % 7.5 % (2.0-8.0); NEUTROPHILS # 3.2 10^3/uL (1.5-8.5); NEUTROPHILS % 82.1 % (36.0-66.0); RED BLOOD COUNT 2.75 10^6/uL (4.30-6.10); WHITE BLOOD COUNT 3.9 10^3/uL (4.0-10.0)
[2023-07-25 05:55] LABS: PLATELET COUNT, AUTOMATED 47 10^3/uL (150-450)
[2023-07-25] MEDS: HYDROCORTISONE 100MG/2ML VIAL IV SCH (06:01)
[2023-07-25] MEDS: LEVOTHYROXINE 25MCG TABLET (0.025MG) PO SCH (06:01)
[2023-07-25 06:19] LABS: BLOOD UREA NITROGEN 7 MG/DL (9-23); CALCIUM LEVEL 7.7 MG/DL (8.3-10.6); CARBON DIOXIDE LEVEL 25 MMOL/L (20-31); CHLORIDE LEVEL 110 MMOL/L (98-107); CREATININE FOR GFR 0.57 MG/DL (0.70-1.30); GLOMERULAR FILTRATION RATE > 60.0 (>49); GLUCOSE, FASTING 124 MG/DL (74-106); POTASSIUM SERUM 3.3 MMOL/L (3.5-5.1); SODIUM LEVEL 142 MMOL/L (136-145)
[2023-07-25] MEDS ORDERED: POLYETHYLENE GLYCOL (MIRALAX) 238GM BOTTLE PO ONE (07:00)
[2023-07-25] MEDS: KCL 10MEQ/100ML SWI (KRUN) 10 MEQ in IV 1 EA IV SCH ×4 (07:03→15:31)
[2023-07-25] MEDS: IPRATROPIUM 0.5MG/ALBUTEROL 2.5MG INH SOL UD 3ML (DUONEB) NEB SCH ×3 (07:27→20:00)
[2023-07-25 08:00] VITALS: BP 96/62; TEMP 97; O2SAT 95
[2023-07-25] MEDS: PANTOPRAZOLE 40MG VIAL IV SCH ×2 (09:20→21:24)
[2023-07-25 09:28] VITALS: BP 100/62
[2023-07-25] MEDS: MIDODRINE 5 MG TAB PO SCH ×3 (09:29→16:00)
[2023-07-25] MEDS: LORazepam 1 MG TAB PO SCH ×3 (09:29→21:29)
[2023-07-25] MEDS: CYANOCOBALAMIN 500 MCG TAB PO SCH (09:31)
[2023-07-25] MEDS: FOLIC ACID 1MG TAB PO SCH (09:31)
[2023-07-25] MEDS: GABAPENTIN 300 MG CAP PO SCH ×3 (09:31→21:24)
[2023-07-25] MEDS: METOPROLOL TART 12.5 MG PER 1/2 TAB PO SCH ×2 (09:32→21:29)
[2023-07-25 12:00] VITALS: BP 100/68; TEMP 97.1; O2SAT 97
[2023-07-25] MEDS ORDERED: HYDROCORTISONE 100MG/2ML VIAL IV SCH (12:00)
[2023-07-25] MEDS ORDERED: AMIODARONE 200 MG TAB (PACERONE) PO ONE (13:00)
[2023-07-25] MEDS ORDERED: PREVNAR-20 VACCINE 0.5ML SYRINGE IM.IMMUN ONE (13:00)
[2023-07-25] MEDS ORDERED: KCL 10MEQ/100ML SWI (KRUN) 10 MEQ in IV 1 EA IV ONE (16:00)
[2023-07-25 16:14] VITALS: BP 118/70; TEMP 97.5; O2SAT 95
[2023-07-25] MEDS ORDERED: oxyCODONE 5MG TAB PO PRN (17:45)
[2023-07-25] MEDS ORDERED: ONDANSETRON 4MG 2ML VIAL IV PRN (17:45)
[2023-07-25] MEDS ORDERED: fentaNYL 100 MCG/2 ML INJECTION IV PRN (17:45)
[2023-07-25] MEDS ORDERED: HYDROMORPHONE HCL 0.5 MG/ 0.5 ML SYRINGE IV PRN (17:45)
[2023-07-25 18:43] LABS: HEMATOCRIT 27.5 % (42.0-52.0); HEMOGLOBIN 9.2 g/dl (13.5-17.5)
[2023-07-25 19:52] VITALS: BP 116/60; TEMP 97.6; O2SAT 98
[2023-07-25] MEDS: AMIODARONE 200 MG TAB (PACERONE) PO SCH (21:24)
[2023-07-25] MEDS: HYDROCORTISONE 10 MG TAB PO SCH (21:43)
[2023-07-26] VITALS (10 sets, daily range): BP systolic 102–138; BP diastolic 63–84; TEMP 97.4–98; O2SAT 95–98
[2023-07-26] MEDS: IPRATROPIUM 0.5MG/ALBUTEROL 2.5MG INH SOL UD 3ML (DUONEB) NEB SCH ×2 (02:00→07:17)
[2023-07-26] MEDS: PIPERACILLIN/TAZOBACTAM SOD 4.5 GM in D5W MINI-BAG PLUS 50 ML IV SCH ×4 (03:54→20:22)
[2023-07-26 06:14] LABS: BASO % 0.2 % (0.0-1.0); HEMATOCRIT 27.7 % (42.0-52.0); HEMOGLOBIN 9.3 g/dl (13.5-17.5); LYMPH # 0.4 10^3/uL (1.5-5.0); LYMPH % 8.8 % (24.0-44.0); MEAN CORPUSCULAR HEMOGLOBIN 31.2 pg (27.0-33.0); MEAN CORPUSCULAR HGB CONC 33.6 g/dl (32.0-36.5); MONO # 0.5 10^3/uL (0.0-0.8); NEUTROPHILS # 3.9 10^3/uL (1.5-8.5); NEUTROPHILS % 79.2 % (36.0-66.0); RED BLOOD COUNT 2.98 10^6/uL (4.30-6.10); WHITE BLOOD COUNT 4.9 10^3/uL (4.0-10.0)
[2023-07-26 06:18] LABS: PLATELET COUNT, AUTOMATED 45 10^3/uL (150-450)
[2023-07-26 06:33] LABS: BLOOD UREA NITROGEN 8 MG/DL (9-23); CALCIUM LEVEL 7.9 MG/DL (8.3-10.6); CARBON DIOXIDE LEVEL 26 MMOL/L (20-31); CHLORIDE LEVEL 111 MMOL/L (98-107); CREATININE FOR GFR 0.66 MG/DL (0.70-1.30); GLOMERULAR FILTRATION RATE > 60.0 (>49); GLUCOSE, FASTING 104 MG/DL (74-106); POTASSIUM SERUM 3.3 MMOL/L (3.5-5.1); SODIUM LEVEL 143 MMOL/L (136-145)
[2023-07-26] MEDS: LEVOTHYROXINE 25MCG TABLET (0.025MG) PO SCH (06:39)
[2023-07-26] MEDS ORDERED: MAG SULF 1GM/100ML (MAG RUN) 1 GM in IV 1 EA IV ONE (07:00)
[2023-07-26 07:49] LABS: LDH LACTATE DEHYDROGENASE 196 U/L (120-246)
[2023-07-26 07:58] LABS: TOTAL PROTEIN 5.2 G/DL (5.7-8.2)
[2023-07-26] MEDS ORDERED: POTASSIUM CHLORIDE 10MEQ SR TABLET PO ONE (08:00)
[2023-07-26] MEDS: CYANOCOBALAMIN 500 MCG TAB PO SCH (08:48)
[2023-07-26] MEDS: PANTOPRAZOLE 40MG VIAL IV SCH ×2 (08:48→20:22)
[2023-07-26] MEDS: HYDROCORTISONE 10 MG TAB PO SCH ×2 (08:48→20:23)
[2023-07-26] MEDS: GABAPENTIN 300 MG CAP PO SCH ×3 (08:49→20:22)
[2023-07-26] MEDS: METOPROLOL TART 12.5 MG PER 1/2 TAB PO SCH ×2 (08:49→20:24)
[2023-07-26] MEDS: MIDODRINE 5 MG TAB PO SCH ×3 (08:49→15:26)
[2023-07-26] MEDS: FOLIC ACID 1MG TAB PO SCH (08:49)
[2023-07-26] MEDS: AMIODARONE 200 MG TAB (PACERONE) PO SCH ×2 (08:49→20:22)
[2023-07-26] MEDS: LORazepam 1 MG TAB PO SCH ×3 (08:49→20:23)
[2023-07-26] MEDS ORDERED: IPRATROPIUM 0.5MG/ALBUTEROL 2.5MG INH SOL UD 3ML (DUONEB) NEB PRN (09:55)
[2023-07-26] MEDS ORDERED: PILL CUTTER 1 EACH XX PRN (09:55)
[2023-07-26] MEDS: KCL 10MEQ/100ML SWI (KRUN) 10 MEQ in IV 1 EA IV SCH ×2 (10:57→12:34)
[2023-07-26 12:33] LABS: PH BODY FLUID 7.588 UNITS (NOT ESTABLISHED); SOURCE, BODY FLUID pH PLEURAL
[2023-07-26] MEDS: FERROUS SULFATE 325MG TAB PO SCH (12:34)
[2023-07-26 12:38] LABS: APPEARANCE, BODY FLUID CLEAR (CLEAR); PLEURAL FL COLOR PALE YELLOW (COLORLESS); SOURCE, BODY FLUID PLEURAL
[2023-07-26 12:50] LABS: SOURCE, BODY FLUID GLUCOSE PLEURAL
[2023-07-26 12:51] LABS: LDH, BODY FLUID 136 U/L (NOT ESTABLISHED); SOURCE, BODY FLUID LDH PLEURAL
[2023-07-26 12:52] LABS: SOURCE, BODY FLUID TOT PROTEIN PERICARDIAL; TOTAL PROTEIN, BODY FLUID 2.8 G/DL (NOT ESTABLISHED)
[2023-07-26 18:03] LABS: HEMATOCRIT 29.6 % (42.0-52.0); HEMOGLOBIN 9.7 g/dl (13.5-17.5)
[2023-07-26] MEDS: ACETAMINOPHEN TAB 650MG DOSE (2X325MG) PO PRN (18:32)
[2023-07-27] VITALS: BP 112/72; TEMP 97.1; O2SAT 95
[2023-07-27] MEDS: PIPERACILLIN/TAZOBACTAM SOD 4.5 GM in D5W MINI-BAG PLUS 50 ML IV SCH ×2 (03:25→09:23)
[2023-07-27] MEDS: ACETAMINOPHEN TAB 650MG DOSE (2X325MG) PO PRN (03:30)
[2023-07-27 04:00] VITALS: BP 135/77; TEMP 97.5; O2SAT 96
[2023-07-27] MEDS: LEVOTHYROXINE 25MCG TABLET (0.025MG) PO SCH (06:25)
[2023-07-27 06:43] LABS: BASO % 0.2 % (0.0-1.0); EOS % 0.2 % (0.0-3.0); HEMATOCRIT 27.7 % (42.0-52.0); HEMOGLOBIN 9.2 g/dl (13.5-17.5); LYMPH # 0.6 10^3/uL (1.5-5.0); LYMPH % 10.5 % (24.0-44.0); MEAN CORPUSCULAR HEMOGLOBIN 31.5 pg (27.0-33.0); MEAN CORPUSCULAR HGB CONC 33.2 g/dl (32.0-36.5); MEAN CORPUSCULAR VOLUME 94.9 fl (80.0-96.0); MONO # 0.7 10^3/uL (0.0-0.8); MONO % 12.2 % (2.0-8.0); NEUTROPHILS # 4.6 10^3/uL (1.5-8.5); NEUTROPHILS % 76.2 % (36.0-66.0); RED BLOOD COUNT 2.92 10^6/uL (4.30-6.10)
[2023-07-27 06:48] LABS: PLATELET COUNT, AUTOMATED 42 10^3/uL (150-450)
[2023-07-27 07:43] VITALS: BP 130/81; TEMP 97.5; O2SAT 98
[2023-07-27 07:48] LABS: BLOOD UREA NITROGEN 10 MG/DL (9-23); CALCIUM LEVEL 8.1 MG/DL (8.3-10.6); CARBON DIOXIDE LEVEL 24 MMOL/L (20-31); CHLORIDE LEVEL 113 MMOL/L (98-107); CREATININE FOR GFR 0.79 MG/DL (0.70-1.30); GLOMERULAR FILTRATION RATE > 60.0 (>49); GLUCOSE, FASTING 89 MG/DL (74-106); POTASSIUM SERUM 3.8 MMOL/L (3.5-5.1); SODIUM LEVEL 143 MMOL/L (136-145)
[2023-07-27] MEDS: FOLIC ACID 1MG TAB PO SCH (09:17)
[2023-07-27] MEDS: GABAPENTIN 300 MG CAP PO SCH ×2 (09:17→15:20)
[2023-07-27] MEDS: FERROUS SULFATE 325MG TAB PO SCH (09:17)
[2023-07-27] MEDS: LORazepam 1 MG TAB PO SCH ×2 (09:17→15:20)
[2023-07-27] MEDS: CYANOCOBALAMIN 500 MCG TAB PO SCH (09:17)
[2023-07-27 09:18] VITALS: BP 130/81
[2023-07-27] MEDS: HYDROCORTISONE 10 MG TAB PO SCH (09:18)
[2023-07-27] MEDS: METOPROLOL TART 12.5 MG PER 1/2 TAB PO SCH (09:18)
[2023-07-27] MEDS: AMIODARONE 200 MG TAB (PACERONE) PO SCH (09:18)
[2023-07-27] MEDS: PANTOPRAZOLE 40MG VIAL IV SCH (09:18)
[2023-07-27] MEDS: MIDODRINE 5 MG TAB PO SCH ×2 (09:23→13:29)
[2023-07-27] MEDS ORDERED: PANT40IN4 PO (10:35)
[2023-07-27] MEDS ORDERED: FERR1TAB8 PO (10:35)
[2023-07-27] MEDS ORDERED: HYDR-4468 PO (10:35)
[2023-07-27] MEDS ORDERED: DOXY-444 PO (10:35)
[2023-07-27] MEDS ORDERED: METO1TAB87 PO ×2 (10:35→14:23)
[2023-07-27] MEDS ORDERED: AMIO200T49 PO (10:35)
[2023-07-27] MEDS ORDERED: MIDO5TA PO ×2 (10:35→14:23)
[2023-07-27] MEDS ORDERED: AUGM500T34 PO (10:35)
[2023-07-27] MEDS ORDERED: POTA10CA60 PO (10:35)
[2023-07-27 13:29] VITALS: BP 138/85
[2023-07-27] MEDS ORDERED: AMOX875T2 PO (14:23)
[2023-07-27] MEDS ORDERED: HYDR-4467 PO (14:23)
[2023-07-27] MEDS ORDERED: PANT40TA29 PO (14:23)
[2023-07-27] MEDS ORDERED: HYDROCORTISONE 10 MG TAB PO ONE (15:00)
== END 2023-07-27 15:42 | disposition home or self-care (01) | DRG 180 ==
LOC: M ED 21:12 → M ED INP 07-23 01:56 → ENRESERV 07-23 02:25 → M PCU 07-23 02:55
PROVIDERS: ADMIT Internal Medicine; ATTEND Internal Medicine
PROC: 30233N1 Transfusion of Nonautologous Red Blood Cells into Peripheral Vein, Percutaneous Approach (ICD-10-PCS; 2023-07-23)
PROC: 0W3P8ZZ Control Bleeding in Gastrointestinal Tract, Via Natural or Artificial Opening Endoscopic (ICD-10-PCS; principal; 2023-07-25 14:00)
DX: C78.1 Secondary malignant neoplasm of mediastinum (principal); J18.9 Pneumonia, unspecified organism; D61.810 Antineoplastic chemotherapy induced pancytopenia; K55.21 Angiodysplasia of colon with hemorrhage; K57.91 Diverticulosis of intestine, part unspecified, without perforation or abscess with bleeding; J91.0 Malignant pleural effusion; C34.92 Malignant neoplasm of unspecified part of left bronchus or lung; C79.71 Secondary malignant neoplasm of right adrenal gland; C79.72 Secondary malignant neoplasm of left adrenal gland; D62 Acute posthemorrhagic anemia; C79.51 Secondary malignant neoplasm of bone; R04.2 Hemoptysis; E03.9 Hypothyroidism, unspecified; I48.91 Unspecified atrial fibrillation; K22.2 Esophageal obstruction; R00.0 Tachycardia, unspecified; I95.89 Other hypotension; F41.9 Anxiety disorder, unspecified; G47.00 Insomnia, unspecified; J44.9 Chronic obstructive pulmonary disease, unspecified; Z79.01 Long term (current) use of anticoagulants; Z92.21 Personal history of antineoplastic chemotherapy; Z79.899 Other long term (current) drug therapy; Z92.3 Personal history of irradiation; Z87.891 Personal history of nicotine dependence

== ENCOUNTER → 2023-07-26 | Outpatient (RCR) | payer OTHER ==
[~2023-07-26] MED LIST changes: +AMIO200T49 PO; +AMOX875T2 PO; +AUGM500T34 PO; +B-12100010 PO; +DEXA4TA; +DOXY-444 PO; +FERR1TAB8 PO; +GLYCOPYRROLATE INJ 0.2 MG/ML 2 ML VIAL As Ordered ONE; +HYDR-4467 PO; +HYDR-4468 PO; +MELA10CA PO; +METO1TAB87 PO; +MIDO5TA PO; +OXYC10TA12; +PANT40IN4 PO; +PANT40TA29 PO; +POTA10CA60 PO; +SENN-186 PO; +THERTAB19 PO; +propofoL 200 MG/20 ML VIAL As Ordered ONE
== END ==
LOC: M ONCR 07-25 11:45
PROVIDERS: ATTEND General Practice
DX: Z51.0 Encounter for antineoplastic radiation therapy (principal); C77.1 Secondary and unspecified malignant neoplasm of intrathoracic lymph nodes; C79.51 Secondary malignant neoplasm of bone

== ENCOUNTER 2023-08-01 13:42 | Outpatient (RCR) | payer OTHER ==
[~2023-08-01 13:42] MED LIST changes: -DEXA4TA; -GLYCOPYRROLATE INJ 0.2 MG/ML 2 ML VIAL As Ordered ONE; -OXYC10TA12; -SENN-186 PO; -propofoL 200 MG/20 ML VIAL As Ordered ONE
[2023-08-02] MEDS ORDERED: DEXA4TA (13:31)
[2023-08-02] MEDS ORDERED: OXYC10TA12 (13:31)
[2023-08-02] MEDS ORDERED: SENN-186 PO (13:31)
[2023-08-02] MEDS ORDERED: SYNT25TA PO (14:44)
[2023-08-02] MEDS ORDERED: OXYC10TA12 PO (14:44)
[2023-08-02] MEDS ORDERED: ZOLP10TA2 PO (14:44)
[2023-08-02] MEDS ORDERED: GABA-282 PO (14:44)
[2023-08-02] MEDS ORDERED: ELIQ5TAB PO (14:44)
[2023-08-11] MEDS ORDERED: HYDR-4468 PO (14:01)
[2023-08-14] MEDS ORDERED: SPIR1CAP INH (10:13)
[2023-08-14] MEDS ORDERED: OXYC10TA12 PO (15:05)
[2023-08-23] MEDS ORDERED: PANT40TA29 PO (09:34)
[2023-08-23] MEDS ORDERED: METO1TAB87 PO (09:34)
[2023-08-23] MEDS ORDERED: FERR1TAB8 PO (09:34)
[2023-08-23] MEDS ORDERED: POTA10CA60 PO (09:34)
[2023-08-28] MEDS ORDERED: SYNT25TA PO (13:15)
[2023-08-28] MEDS ORDERED: SPIR1CAP INH (13:15)
[2023-08-28] MEDS ORDERED: MIDO5TA PO (13:15)
[2023-08-28] MEDS ORDERED: COLA100C5 PO (13:15)
== END 2023-08-24 ==
LOC: M ONCR 13:42
PROVIDERS: ATTEND General Practice
DX: Z51.0 Encounter for antineoplastic radiation therapy (principal); C77.1 Secondary and unspecified malignant neoplasm of intrathoracic lymph nodes

== ENCOUNTER 2023-08-15 07:18 | Outpatient (CLI) | payer OTHER ==
[~2023-08-15] VITALS: Ht 170.2 cm; Wt 61.0 kg
[~2023-08-15 07:18] MED LIST changes: +DEXA4TA; +OXYC10TA12; +SENN-186 PO; +SPIR1CAP INH
[2023-08-15] MEDS: diphenhydrAMINE 25MG CAP PO ONE (07:34)
[2023-08-15] MEDS: ACETAMINOPHEN TAB 650MG DOSE (2X325MG) PO ONE (07:34)
[2023-08-15] MEDS: SODIUM CHLORIDE 0.9% INJ 10 ML SYR IV SCH (07:35)
[2023-08-15] MEDS: NS 250 ML IV ONE (07:36)
[2023-08-15 07:37] VITALS: BP 116/72; O2SAT 99
[2023-08-15 07:50] VITALS: BP 116/72; TEMP 97.6; O2SAT 99
[2023-08-15 08:10] VITALS: BP 106/66; TEMP 98.1; O2SAT 97
[2023-08-15 09:30] VITALS: BP 112/72; TEMP 98.2; O2SAT 96
[2023-08-15 09:55] VITALS: BP 102/66; TEMP 97.8; O2SAT 97
[2023-08-15 11:15] VITALS: BP 138/92; TEMP 97.5; O2SAT 98
== END 2023-08-15 11:30 ==
LOC: M INFU 07:18
PROVIDERS: ATTEND Specialist
DX: C34.90 Malignant neoplasm of unspecified part of unspecified bronchus or lung (principal)
CPT/HCPCS: 36430; 96360; 96361; P9016

== ENCOUNTER 2023-08-29 01:33 | Inpatient (IN) | payer MEDICARE, OTHER ==
[2023-08-29] VITALS (18 sets, daily range): BP systolic 54–126; BP diastolic 51–76; TEMP 97.4–98.6; O2SAT 94–100
[~2023-08-29] VITALS: Ht 170.2 cm; Wt 58.6 kg
[2023-08-29] MEDS: NS 1,000 ML IV ONE ×2 (01:50→02:50)
[2023-08-29 02:15] LABS: VENOUS BASE EXCESS -2.9 (-2.0-2.0); VENOUS HCO3 22.2 MMOL/L (23.0-27.0); VENOUS O2 SATURATION 67.8 % (60.0-80.0); VENOUS PARTIAL PRESSURE CO2 39.2 mmHg (38.0-50.0); VENOUS PARTIAL PRESSURE O2 38.1 mmHg (30.0-50.0); VENOUS STANDARD HCO3 21.8 MMOL/L; VENOUS TOTAL CO2 23.4 MMOL/L (24.0-28.0)
[2023-08-29 02:42] LABS: INR 1.55; PROTHROMBIN TIME 18.1 SECONDS (12.5-14.5)
[2023-08-29 02:44] LABS: LYMPH # 1.5 10^3/uL (1.5-5.0); LYMPH % 33.3 % (24.0-44.0); MEAN CORPUSCULAR HEMOGLOBIN 31.7 pg (27.0-33.0); MEAN CORPUSCULAR HGB CONC 30.8 g/dl (32.0-36.5); MEAN CORPUSCULAR VOLUME 102.9 fl (80.0-96.0); MONO # 0.1 10^3/uL (0.0-0.8); MONO % 2.5 % (2.0-8.0); NEUTROPHILS # 2.8 10^3/uL (1.5-8.5); NEUTROPHILS % 62.4 % (36.0-66.0); RED BLOOD COUNT 1.04 10^6/uL (4.30-6.10); WHITE BLOOD COUNT 4.4 10^3/uL (4.0-10.0)
[2023-08-29] MEDS ORDERED: IPRATROPIUM 0.5MG/ALBUTEROL 2.5MG INH SOL UD 3ML (DUONEB) NEB ONE ×2 (02:45)
[2023-08-29 02:48] LABS: HEMATOCRIT 10.7 % (42.0-52.0); HEMOGLOBIN 3.3 g/dl (13.5-17.5); PLATELET COUNT, AUTOMATED 43 10^3/uL (150-450)
[2023-08-29 02:53] LABS: ALBUMIN 1.5 G/DL (3.2-5.2); ALKALINE PHOSPHATASE 82 U/L (46-116); ALT/SGPT 33 U/L (7.0-40); AMYLASE 22 U/L (30-118); AST/SGOT 51 U/L (<34); BILIRUBIN,DIRECT 0.2 MG/DL (<0.4); BILIRUBIN,TOTAL 0.5 MG/DL (0.3-1.2); BLOOD UREA NITROGEN 24 MG/DL (9-23); CARBON DIOXIDE LEVEL 22 MMOL/L (20-31); CHLORIDE LEVEL 105 MMOL/L (98-107); CK-MB VALUE MASS < 1.0 NG/ML (<3.6); CPK CREATINE PHOSPHOKINASE 20 U/L (46-171); CREATININE FOR GFR 0.94 MG/DL (0.70-1.30); GLOMERULAR FILTRATION RATE > 60.0 (>49); GLUCOSE, FASTING 129 MG/DL (74-106); POTASSIUM SERUM 4.7 MMOL/L (3.5-5.1); SODIUM LEVEL 135 MMOL/L (136-145); TOTAL PROTEIN 4.3 G/DL (5.7-8.2)
[2023-08-29 04:17] LABS: APPEARANCE, URINE HAZY (CLEAR); BACTERIA, URINE AUTO NEGATIVE (NEGATIVE); BILIRUBIN, URINE AUTO NEGATIVE (NEGATIVE); BLOOD, URINE BLOOD NEGATIVE (NEGATIVE); COLOR, URINE YELLOW (YELLOW); GLUCOSE, URINE (UA) AUTO NEGATIVE (NEGATIVE); KETONE, URINE AUTO NEGATIVE (NEGATIVE); LEUKOCYTE ESTERASE, URINE AUTO NEGATIVE (NEGATIVE); NITRITE, URINE AUTO NEGATIVE (NEGATIVE); PROTEIN, URINE AUTO NEGATIVE (NEGATIVE); RBC, URINE AUTO 0 /HPF (0-3); SPECIFIC GRAVITY URINE AUTO 1.011 (1.002-1.035); SQUAMOUS EPITHELIAL CELL UR AU 0 /HPF (0-6); UROBILINOGEN, URINE AUTO 0.2 mg/dL (0.0-2.0); WBC, URINE AUTO 0 /HPF (0-3)
[2023-08-29 05:42] LABS: PROCALCITONIN 0.32 ng/ml
[2023-08-29] MEDS ORDERED: ISOVUE-370 76% 100ML VIAL As Ordered ONE (05:50)
[2023-08-29] MEDS: LEVOTHYROXINE 25MCG TABLET (0.025MG) PO SCH (06:00)
[2023-08-29] MEDS ORDERED: MULT-40 PO (06:52)
[2023-08-29] MEDS ORDERED: AMIO200T49 PO (06:52)
[2023-08-29] MEDS ORDERED: HYDR-4468 PO ×2 (06:52)
[2023-08-29] MEDS ORDERED: SYNT25TA PO (06:54)
[2023-08-29] MEDS ORDERED: HOME MED LIST COMPLETE! XX SCH (07:00)
[2023-08-29] MEDS: AMIODARONE 200 MG TAB (PACERONE) PO SCH (09:00)
[2023-08-29] MEDS: METOPROLOL TART 12.5 MG PER 1/2 TAB PO SCH (09:00)
[2023-08-29] MEDS ORDERED: PERCOCET 5MG/325MG TAB PO PRN (11:30)
[2023-08-29] MEDS: TIOTROPIUM INHALER/CAPSULE (SPIRIVA) INH SCH (11:48)
[2023-08-29] MEDS: CYANOCOBALAMIN 500 MCG TAB PO SCH (12:09)
[2023-08-29] MEDS: DOCUSATE SODIUM 100MG CAPSULE PO SCH (12:09)
[2023-08-29] MEDS: MIDODRINE 5 MG TAB PO SCH (12:10)
[2023-08-29] MEDS: PANTOPRAZOLE 40MG TAB (PROTONIX) PO SCH (12:10)
[2023-08-29] MEDS: SENNA 8.6 MG TAB (SENOKOT) PO SCH (12:10)
[2023-08-29] MEDS: FOLIC ACID 1MG TAB PO SCH (12:10)
[2023-08-29] MEDS: FERROUS SULFATE 325MG TAB PO SCH (12:10)
[2023-08-29] MEDS: GABAPENTIN 300 MG CAP PO SCH (12:10)
[2023-08-29] MEDS: HYDROCORTISONE 100MG/2ML VIAL IV ONE (12:12)
[2023-08-29 13:08] LABS: MEAN CORPUSCULAR HGB CONC 33.7 g/dl (32.0-36.5); MEAN CORPUSCULAR VOLUME 89.1 fl (80.0-96.0); WHITE BLOOD COUNT 3.4 10^3/uL (4.0-10.0)
[2023-08-29 13:10] LABS: THYROID STIMULATING HORMONE 12.517 uIU/ML (0.55-4.78)
[2023-08-29 13:13] LABS: HEMATOCRIT 20.5 % (42.0-52.0); HEMOGLOBIN 6.9 g/dl (13.5-17.5); PLATELET COUNT, AUTOMATED 28 10^3/uL (150-450)
[2023-08-29] MEDS ORDERED: HYDROCORTISONE 100MG/2ML VIAL IV SCH (18:00)
[2023-08-29 19:08] LABS: FREE T4 0.67 NG/DL (0.89-1.76)
[2023-08-29] MEDS: HYDROCORTISONE 100MG/2ML VIAL IV SCH (20:05)
[2023-08-29] MEDS: LEVOTHYROXINE 25MCG TABLET (0.025MG) PO ONE (20:06)
[2023-08-29 20:28] LABS: HEMATOCRIT 19.8 % (42.0-52.0); HEMOGLOBIN 6.8 g/dl (13.5-17.5)
[2023-08-30] VITALS (15 sets, daily range): BP systolic 95–123; BP diastolic 55–78; TEMP 97.1–98.9; O2SAT 95–100
[2023-08-30 04:41] LABS: HEMATOCRIT 21.1 % (42.0-52.0); HEMOGLOBIN 7.4 g/dl (13.5-17.5); LYMPH # 0.4 10^3/uL (1.5-5.0); LYMPH % 8.8 % (24.0-44.0); MEAN CORPUSCULAR HEMOGLOBIN 29.7 pg (27.0-33.0); MEAN CORPUSCULAR HGB CONC 35.1 g/dl (32.0-36.5); MEAN CORPUSCULAR VOLUME 84.7 fl (80.0-96.0); MONO # 0.1 10^3/uL (0.0-0.8); MONO % 1.2 % (2.0-8.0); NEUTROPHILS # 3.9 10^3/uL (1.5-8.5); NEUTROPHILS % 89.3 % (36.0-66.0); RED BLOOD COUNT 2.49 10^6/uL (4.30-6.10); WHITE BLOOD COUNT 4.3 10^3/uL (4.0-10.0)
[2023-08-30 04:43] LABS: PLATELET COUNT, AUTOMATED 21 10^3/uL (150-450)
[2023-08-30 08:28] LABS: HEMOGLOBIN A1c 5.5 % (4.0-6.0)
[2023-08-30 08:33] LABS: BLOOD UREA NITROGEN 18 MG/DL (9-23); CALCIUM LEVEL 7.1 MG/DL (8.3-10.6); CARBON DIOXIDE LEVEL 22 MMOL/L (20-31); CHLORIDE LEVEL 109 MMOL/L (98-107); CHOLESTEROL LEVEL 113 MG/DL (<200); CHOLESTEROL RISK RATIO 4.87 (<5); CREATININE FOR GFR 0.71 MG/DL (0.70-1.30); GLOMERULAR FILTRATION RATE > 60.0 (>49); GLUCOSE, FASTING 115 MG/DL (74-106); HDL CHOLESTEROL 23.2 MG/DL (>40); LDL CHOLESTEROL 68.6 MG/DL (<100); NON-HDL-C 89.8 MG/DL; POTASSIUM SERUM 3.9 MMOL/L (3.5-5.1); SODIUM LEVEL 140 MMOL/L (136-145); TRIGLYCERIDES LEVEL 106 MG/DL (<150)
[2023-08-30] MEDS: PANTOPRAZOLE 40MG VIAL IV SCH (09:18)
[2023-08-30] MEDS: ATORVASTATIN 20 MG TAB PO SCH (11:49)
[2023-08-30] MEDS: HYDROCORTISONE 100MG/2ML VIAL IV SCH (11:49)
[2023-08-30 12:54] LABS: HEMATOCRIT 19.6 % (42.0-52.0); HEMOGLOBIN 6.8 g/dl (13.5-17.5)
[2023-08-30 14:07] LABS: IRON (FE) 122 UG/DL (65-175); PERCENT SATURATION 72.2 % (19.7-50.0); TOTAL IRON BINDING CAPACITY 169 UG/DL (250-425)
[2023-08-30 14:09] LABS: FOLATE > 24.0 NG/ML (>5.4)
[2023-08-30 14:10] LABS: VITAMIN B12 LEVEL 1228 PG/ML (211-911)
[2023-08-30 14:26] LABS: FERRITIN 3485.2 NG/ML (10.5-307.3)
[2023-08-30 19:20] LABS: HEMATOCRIT 23.6 % (42.0-52.0); HEMOGLOBIN 8.4 g/dl (13.5-17.5)
[2023-08-30 20:17] LABS: HEMATOCRIT 22.6 % (42.0-52.0); HEMOGLOBIN 7.9 g/dl (13.5-17.5)
[2023-08-31 03:46] VITALS: BP 120/79; TEMP 97.9; O2SAT 97
[2023-08-31 04:53] LABS: LYMPH # 0.3 10^3/uL (1.5-5.0); LYMPH % 7.8 % (24.0-44.0); MEAN CORPUSCULAR HEMOGLOBIN 29.6 pg (27.0-33.0); MEAN CORPUSCULAR HGB CONC 35.1 g/dl (32.0-36.5); MEAN CORPUSCULAR VOLUME 84.3 fl (80.0-96.0); MONO # 0.1 10^3/uL (0.0-0.8); MONO % 1.9 % (2.0-8.0); NEUTROPHILS # 3.7 10^3/uL (1.5-8.5); NEUTROPHILS % 89.6 % (36.0-66.0); WHITE BLOOD COUNT 4.1 10^3/uL (4.0-10.0)
[2023-08-31 04:57] LABS: HEMATOCRIT 19.4 % (42.0-52.0); PLATELET COUNT, AUTOMATED 41 10^3/uL (150-450)
[2023-08-31 05:00] LABS: HEMOGLOBIN 6.8 g/dl (13.5-17.5)
[2023-08-31 05:17] LABS: BLOOD UREA NITROGEN 16 MG/DL (9-23); CARBON DIOXIDE LEVEL 24 MMOL/L (20-31); CHLORIDE LEVEL 111 MMOL/L (98-107); CREATININE FOR GFR 0.66 MG/DL (0.70-1.30); GLOMERULAR FILTRATION RATE > 60.0 (>49); GLUCOSE, FASTING 127 MG/DL (74-106); MAGNESIUM LEVEL 1.7 MG/DL (1.8-2.4); POTASSIUM SERUM 3.5 MMOL/L (3.5-5.1); SODIUM LEVEL 140 MMOL/L (136-145)
[2023-08-31] MEDS: LEVOTHYROXINE 75MCG TABLET (0.075MG) PO SCH (05:34)
[2023-08-31 08:00] VITALS: BP 131/78; TEMP 97; O2SAT 97
[2023-08-31] MEDS: MAG SULF 1GM/100ML (MAG RUN) 1 GM in IV 1 EA IV ONE (08:27)
[2023-08-31] MEDS ORDERED: HYDROCORTISONE 10 MG TAB PO SCH (09:00)
[2023-08-31] MEDS ORDERED: SCOPOLAMINE 1MG TRANSDERMAL PATCH TOP PRN (09:35)
[2023-08-31] MEDS ORDERED: ONDANSETRON 4MG ORAL DISINTEGRATING TAB PO PRN (09:35)
[2023-08-31] MEDS ORDERED: LORazepam 1 MG TAB PO PRN (09:35)
[2023-08-31] MEDS ORDERED: MORPHINE 10MG/0.5ML ORAL CONCENTRATE SOLUTION U/D SL PRN (09:35)
[2023-08-31] MEDS ORDERED: BISACODYL 10MG SUPP PR PRN (09:35)
[2023-08-31] MEDS ORDERED: FLEET ENEMA PR PRN (09:35)
[2023-08-31] MEDS ORDERED: MORPHINE SULF IN 0.9% NACL 100 MG in IV 1 EA IV SCH (09:35)
[2023-08-31] MEDS ORDERED: ACETAMINOPHEN 650MG SUPP PR PRN (09:35)
[2023-08-31] MEDS ORDERED: ATROPINE SULFATE 1% OPHTH SOLN 2ML BTL SL PRN (09:35)
[2023-08-31] MEDS ORDERED: LORazepam 2 MG/ML 1ML VIAL IV PRN (09:35)
[2023-08-31] MEDS ORDERED: MORPHINE 2 MG/ML 1ML VIAL IV PRN (09:35)
[2023-08-31] MEDS ORDERED: ACETAMINOPHEN TAB 650MG DOSE (2X325MG) PO PRN (09:35)
[2023-08-31] MEDS ORDERED: ONDANSETRON 4MG 2ML VIAL IV PRN (09:35)
[2023-08-31] MEDS ORDERED: HYOSCYAMINE SULFATE 0.125 MG SUBL TABLET PO PRN (09:35)
[2023-08-31 11:14] VITALS: BP 116/79
[2023-08-31] MEDS: FUROSEMIDE 20MG/2ML VIAL IV ONE (11:15)
[2023-08-31 12:33] LABS: HEMATOCRIT 24.6 % (42.0-52.0); HEMOGLOBIN 8.6 g/dl (13.5-17.5)
[2023-08-31] MEDS: HYDROCORTISONE 10 MG TAB PO SCH (13:54)
[2023-09-01] MEDS: PANTOPRAZOLE 40MG TAB (PROTONIX) PO SCH (08:53)
[2023-09-01] MEDS ORDERED: MORP1SOL5 PO (16:32)
[2023-09-01] MEDS ORDERED: HYOS125TA PO (16:32)
[2023-09-01] MEDS ORDERED: ATIV1TAB10 PO (16:32)
[2023-09-01] MEDS ORDERED: LEVO75TA4 PO (16:33)
[2023-09-01] MEDS ORDERED: HYDR-4468 PO (16:38)
[2023-09-02] MEDS ORDERED: HYDROCORTISONE 10 MG TAB PO SCH ×2 (09:00)
[2023-09-04] MEDS ORDERED: HYDROCORTISONE 10 MG TAB PO SCH ×2 (09:00→14:00)
== END 2023-09-01 17:45 | disposition hospice, home (50) | DRG 808 ==
LOC: EDBD 01:33 → M ED 01:33 → M ED INP 10:19 → ENRESERV 15:57 → M PCU 17:22
PROVIDERS: ADMIT Internal Medicine; ATTEND Internal Medicine
PROC: 30233N1 Transfusion of Nonautologous Red Blood Cells into Peripheral Vein, Percutaneous Approach (ICD-10-PCS; principal; 2023-08-29)
PROC: 30233R1 Transfusion of Nonautologous Platelets into Peripheral Vein, Percutaneous Approach (ICD-10-PCS; 2023-08-30)
PROC: B246ZZZ Ultrasonography of Right and Left Heart (ICD-10-PCS; 2023-08-31)
DX: D61.810 Antineoplastic chemotherapy induced pancytopenia (principal); I63.9 Cerebral infarction, unspecified; C34.90 Malignant neoplasm of unspecified part of unspecified bronchus or lung; E27.40 Unspecified adrenocortical insufficiency; J90 Pleural effusion, not elsewhere classified; C79.51 Secondary malignant neoplasm of bone; C78.1 Secondary malignant neoplasm of mediastinum; K92.2 Gastrointestinal hemorrhage, unspecified; C79.70 Secondary malignant neoplasm of unspecified adrenal gland; E87.20 Acidosis, unspecified; I48.0 Paroxysmal atrial fibrillation; R19.7 Diarrhea, unspecified; I65.23 Occlusion and stenosis of bilateral carotid arteries; D64.81 Anemia due to antineoplastic chemotherapy; E03.9 Hypothyroidism, unspecified; R29.6 Repeated falls; I95.9 Hypotension, unspecified; G89.3 Neoplasm related pain (acute) (chronic); J44.9 Chronic obstructive pulmonary disease, unspecified; Z79.890 Hormone replacement therapy; Z79.01 Long term (current) use of anticoagulants; Z79.891 Long term (current) use of opiate analgesic; Z79.899 Other long term (current) drug therapy; Z11.52 Encounter for screening for COVID-19; Z87.891 Personal history of nicotine dependence; Z83.3 Family history of diabetes mellitus